=== PATIENT | female | born 1980 | race African-American/Black ===

== ENCOUNTER 2019-02-16 21:45 | Inpatient (IN) | payer MEDICAID ==
[~2019-02-16] VITALS: Ht 165.1 cm; Wt 59.0 kg
[2019-02-16 22:48] LABS: BASOPHILS 0.2 % (0-2); EOSINOPHILS 0.2 % (0-7); HEMATOCRIT 35.3 % (36.0-48.0); HEMOGLOBIN 11.7 g/dL (12-16); IMMATURE GRANULOCYTES 0.2 % (0-5); LYMPHOCYTES 7.3 % (15-50); MCH 23.3 pg (26.0-34.0); MCHC 33.1 g/dL (31.0-37.0); MCV 70.2 fL (80.0-100.0); MEAN PLATELET VOLUME 10.6 fL (7.4-10.4); MONOCYTES 1.3 % (2-11); NEUTROPHILS 90.8 % (40-80); PLATELET COUNT 369 10x3/uL (130-400); RBC 5.03 10x6/uL (4.00-5.40); RDW 16.9 % (11.5-14.5)
[2019-02-16 22:53] LABS: INR 1.08 (0.85-1.17); PROTIME 13.5 SECONDS (11.6-15.0)
[2019-02-16 22:54] LABS: D-DIMER-QUANTITATIVE 0.95 ug/mLFEU (0.20-0.54)
[2019-02-16 23:04] LABS: ALBUMIN 1.6 g/dL (3.4-5.0); ANION GAP 12.3 mmol/L (8-16); BILIRUBIN - TOTAL 0.65 mg/dL (0.2-1.3); CARBON DIOXIDE 27.1 mmol/L (21.0-32.0); CREATININE - SERUM 2.9 mg/dL (0.6-1.3); POTASSIUM - SERUM 3.4 mmol/L (3.5-5.1); PROTEIN - SERUM 7.3 g/dL (6.4-8.2)
[2019-02-16 23:11] LABS: CALCIUM 12.4 mg/dL (8.5-10.1)
--- NOTE | 2019-02-16 23:32 | NUR ---
80 MG LOVENOX PULLED. WASTED 0.2 ML FOR A TOTAL ADMINISTRATION OF 60 MG OR 0.6 ML. CONFIRMED WITH SECOND RN JOHN.
[2019-02-17 00:41] VITALS: BP 123/76; BMI 21.6
[2019-02-17 05:09] VITALS: BP 100/65
[2019-02-17 06:41] LABS: BASOPHILS 0.3 % (0-2); EOSINOPHILS 0 % (0-7); HEMATOCRIT 34.4 % (36.0-48.0); HEMOGLOBIN 11.1 g/dL (12-16); IMMATURE GRANULOCYTES 0.3 % (0-5); LYMPHOCYTES 32.2 % (15-50); MCH 22.9 pg (26.0-34.0); MCHC 32.3 g/dL (31.0-37.0); MCV 71.1 fL (80.0-100.0); MEAN PLATELET VOLUME 11.1 fL (7.4-10.4); MONOCYTES 3.8 % (2-11); NEUTROPHILS 63.4 % (40-80); PLATELET COUNT 351 10x3/uL (130-400); RBC 4.84 10x6/uL (4.00-5.40); RDW 16.9 % (11.5-14.5)
[2019-02-17 06:44] LABS: ANION GAP 13.7 mmol/L (8-16); CARBON DIOXIDE 25.9 mmol/L (21.0-32.0); CREATININE - SERUM 2.9 mg/dL (0.6-1.3); POTASSIUM - SERUM 3.6 mmol/L (3.5-5.1)
[2019-02-17 06:47] LABS: WBC 3.5 10x3/uL (4.8-10.8)
--- NOTE | 2019-02-17 08:00 | NUR ---
CTA WITH CONTRAST CANCELED BECAUSE OF PATIENTS CREATNINE. ALSO PATIENT HAS AN ALLERGY TO SHRIMP. NOTIFIED BUSINESS TEST ANALYST. NEW ORDERS RECIEVED.
[2019-02-17 09:35] VITALS: BP 123/82
--- NOTE | 2019-02-17 12:00 | NUR ---
PATIENT IN BED WITH IV INTACT. NO COMPLAINTS OR SIGNS OF DISTRESS. NO SCDS ON AT THIS TIME. WAITING FOR SCD MACHINE. NO MONITOR AVAILABLE FOR TELE. CALL LIGHT WITHIN REACH.
--- NOTE | 2019-02-17 12:59 | MORECARE ---
CASE MANAGEMENT DISCHARGE SUMMARY PATIENT: CRESENCIO LÓPEZ UNIT: [id number] ADM DATE: 02/16/19 AGE: 38 : [birth year] SEX: F ROOM/BED: D.2209 AUTHOR: SHASTA,DOC PHYSICIAN: REFERRING PHYSICIAN: SUSAN CLEVELAND MD DATE OF SERVICE: 02/17/19 Discharge Plan Patient Name: CRESENCIO LÓPEZ Facility: [facility]:[place] : 1980 Planned Disposition: Home or Self Care Anticipated Discharge Date: Discharge Date: Expected LOS: Initial Reviewer: [email or web address] Initial Review Date: 02/16/2019 Generated: 02/17/19 1:59 pm Comments DCP- Discharge Planning Updated by [email or web address]: Grecia Lara on 02/17/19 11:[address] Patient Name: CRESENCIO LÓPEZ Admission Status: ER Accout number: [id number] Admission Date: 02-16-2019 : 1980 Admission Diagnosis: Attending: MEGHA, Current LOS: 1 Anticipated DC Date: Planned Disposition: Home or Self Care Primary Insurance: UNINSURED DISCOUNT PLAN Discharge Planning Comments: CM met with patient to complete initial dc planning assessment. CM educated patient on the CM role and verbal consent given by patient to complete assessment. Patient lives at home with her children in [place]. At discharge patient plans to return home and feels this is a safe discharge. She stated that an ambulance will be taking her home. I explained to her that they do not do that, so she will need to find another way to get back to [place] when she is discharged. She stated that she will work on that. CM discussed availability of home health, rehab services, and medical equipment. Patient denied known discharge needs at this time. CM will continue to follow and will assist as needed with dc plans/needs. Granite Worker: Grecia Lara DCPIA - Discharge Planning Initial Assessment Updated by [email or web address]: Grecia Lara on 02/17/19 12:52 pm * Is the patient Alert and Oriented? Yes * How many steps to enter\exit or inside your home? * PCP ASHLEY GILBERT [facility] [place] * Preadmission Environment Home with Family * ADLs Independent * Equipment None * List name and contact numbers for known caregivers / representatives who currently or will assist patient after discharge: WILLIAN BRIONES ) * Verbal permission to speak to the caregivers and representatives has been obtained from the patient. N/A * Community resources currently utilized None * Additional services required to return to the preadmission environment? No * Can the patient safely return to the preadmission environment? Yes * Has this patient been hospitalized within the prior 30 days at any hospital? No Patient Name: CRESENCIO LÓPEZ Page [phone] at 1259 All edits/amendments must be made on the electronic document DICTATION DATE: 02/17/191257 HOOKER OPERATOR: SHARI 02/17/191257 RPT#: [id number] DC DATE: STATUS: ADM IN [facility] [address] [place] [address] END OF REPORT
[2019-02-17 13:58] VITALS: BP 107/71
--- NOTE | 2019-02-17 16:54 | NUR ---
PATIENT TO GET VQ SCAN.
--- NOTE | 2019-02-17 17:55 | NUR ---
EXPLAINED TO PATIENT ABOUT UA AND STRICT I&O. VERBALIZED UNDERSTANDING. NO QUESTIONS AT THIS TIME. CALL LIGHT WITHIN REACH.
[2019-02-17 18:01] VITALS: BP 114/75
[2019-02-17 21:11] VITALS: BP 116/66
[2019-02-17 23:48] LABS: APPEARANCE CLEAR (CLEAR); BILIRUBIN NEGATIVE (NEGATIVE); COLOR YELLOW (YELLOW); GLUCOSE NEGATIVE (NEGATIVE); KETONE SMALL mg/dL (NEGATIVE); NITRITE NEGATIVE (NEGATIVE); PROTEIN NEGATIVE (NEGATIVE); SPECIFIC GRAVITY 1.015 (1.005-1.020); UROBILINOGEN NORMAL (NORMAL)
[2019-02-18 01:32] VITALS: BP 124/70
[2019-02-18 05:18] VITALS: BP 120/67
[2019-02-18 07:28] LABS: BASOPHILS 0 % (0-2); EOSINOPHILS 0 % (0-7); HEMATOCRIT 30.3 % (36.0-48.0); HEMOGLOBIN 9.9 g/dL (12-16); IMMATURE GRANULOCYTES 0.4 % (0-5); LYMPHOCYTES 15.8 % (15-50); MCH 23.2 pg (26.0-34.0); MCHC 32.7 g/dL (31.0-37.0); MONOCYTES 6.1 % (2-11); NEUTROPHILS 77.7 % (40-80); PLATELET COUNT 316 10x3/uL (130-400); RBC 4.27 10x6/uL (4.00-5.40)
[2019-02-18 07:29] LABS: WBC 7.7 10x3/uL (4.8-10.8)
[2019-02-18 07:48] LABS: % SATURATION 46 % (15-55); IRON 77 ug/dl (35-150); TOTAL IRON BIND CAPACITY 167 ug/dl (260-445); UNSAT IRON BIND CAPACITY 90 ug/dl (150-375)
[2019-02-18 08:00] LABS: ALBUMIN 1.7 g/dL (3.4-5.0); ANION GAP 11.9 mmol/L (8-16); BILIRUBIN - TOTAL 0.35 mg/dL (0.2-1.3); CALCIUM 10.6 mg/dL (8.5-10.1); CARBON DIOXIDE 23.3 mmol/L (21.0-32.0); CREATININE - SERUM 2.7 mg/dL (0.6-1.3); PHOSPHOROUS 3.3 mg/dL (2.5-4.9); POTASSIUM - SERUM 3.2 mmol/L (3.5-5.1); PROTEIN - SERUM 6.8 g/dL (6.4-8.2)
--- NOTE | 2019-02-18 08:39 | NUR ---
AWAKE AND ALERT. ORIENTED X3. NO C/O AT THIS TIME. BREAKFAST TRAY ORDERED FOR PATIENT. ECHO IN PROGRESS. LUNGS ARE CLEAR BILATERALLY, NO COUGH NOTED. SKIN IS INTACT WITHOUT REDNESS. IV TO RIGHT AC IS PATENT WITHOUT REDNESS AT INSERTION SITE. DENIES NEEDS.
[2019-02-18 08:45] VITALS: BP 124/81
--- NOTE | 2019-02-18 10:41 | NUR ---
GIVEN AM MEDS PER NURSING STUDENTS. ATE ALL OF BREAKFAST. DENIES NEEDS.
[2019-02-18 14:41] VITALS: BP 121/73
--- NOTE | 2019-02-18 18:30 | NUR ---
ATE OVER HALF OF SUPPER. DENIES NEEDS. NO CHANGES NOTED.
[2019-02-18 18:31] VITALS: BP 121/81
[2019-02-19 01:06] VITALS: BP 112/77
[2019-02-19 04:36] VITALS: BP 116/71
[2019-02-19 06:16] LABS: VITAMIN D 25 HYDROXY 7.6 ng/mL (30.0-100.0)
[2019-02-19 06:22] LABS: BASOPHILS 0 % (0-2); EOSINOPHILS 0 % (0-7); HEMATOCRIT 28.4 % (36.0-48.0); IMMATURE GRANULOCYTES 0.5 % (0-5); LYMPHOCYTES 13.4 % (15-50); MCH 22.6 pg (26.0-34.0); MCHC 31.7 g/dL (31.0-37.0); MCV 71.4 fL (80.0-100.0); MEAN PLATELET VOLUME 10.7 fL (7.4-10.4); MONOCYTES 8.7 % (2-11); NEUTROPHILS 77.4 % (40-80); PLATELET COUNT 335 10x3/uL (130-400); RBC 3.98 10x6/uL (4.00-5.40); RDW 17.3 % (11.5-14.5); WBC 7.9 10x3/uL (4.8-10.8)
[2019-02-19 06:45] LABS: ALBUMIN 1.6 g/dL (3.4-5.0); BILIRUBIN - TOTAL 0.28 mg/dL (0.2-1.3); CALCIUM 10.4 mg/dL (8.5-10.1); CARBON DIOXIDE 22.9 mmol/L (21.0-32.0); CREATININE - SERUM 2.1 mg/dL (0.6-1.3); MAGNESIUM - SERUM 1.4 mg/dL (1.8-2.4); PHOSPHOROUS 2.5 mg/dL (2.5-4.9); PROTEIN - SERUM 6.2 g/dL (6.4-8.2)
[2019-02-19 06:50] LABS: POTASSIUM - SERUM 3.9 mmol/L (3.5-5.1)
[2019-02-19 09:15] VITALS: BP 135/83
--- NOTE | 2019-02-19 09:50 | NUR ---
ALERT AND ORIENTED AND IN GOOD SPIRITS. MAGNESIUM 1.4 AND BEGAN ELECTROLYTE PROTOCOL. ENF INFUSING AT PRESRIBED RATE TO RT. A/C INSPIRATORY WHEEZES NOTED TO RUQ AND RLQ ON AUSCULTATION AND CRACLES NOTED TO LLQ AND LUQ ANTERIOR ON AUSCULTATION. NO DISTRESS NOTED. DENIES ANY PAIN OR DISCMFORT WITH BS NOTED. ENCOURAGED TO USE CALL LIGHT FOR ASSSIT.
[2019-02-19 13:11] VITALS: BP 118/78
[2019-02-19 13:15] LABS: ANA REFLEX - DIRECT Negative (Negative)
[2019-02-19 14:12] LABS: ACLA - IGG AB <9 GPL U/mL (0-14); ACLA - IGM AB 14 MPL U/mL (0-12)
[2019-02-19 15:45] VITALS: BP 121/79
--- NOTE | 2019-02-19 19:55 | NUR ---
PT RESTING IN BED. ALERT AND ORIENTED. NO SIGNS OF DISTRESS. BREATHING EVEN AND UNLABORED. PT STATES NO PROBLEMS AT THIS TIME. IV SITE RT AC DRESSING CLEAN DRY AND INTACT. NO SIGNS OF INFECTION. SKIN CLEAN DRY AND INTACT. BOWEL SOUNDS ACTIVE. NO LOWER LEG SWELLING PRESENT. WILL CONTINUE PLAN OF CARE. CALL LIGHT IN REACH. BED LOWERED AND LOCKED. BED RAILS UP X1.
[2019-02-19 20:00] VITALS: BP 118/60
[2019-02-20] VITALS: BP 129/74
--- NOTE | 2019-02-20 02:19 | NUR ---
I have reviewed this patient and I concur with the Shift Assessment completed by the Licensed Practical Nurse today this shift.
[2019-02-20 03:08] LABS: ANGIOTENSIN CONVERTING ENZYME 282 U/L (14-82)
[2019-02-20 04:00] VITALS: BP 117/73
[2019-02-20 04:47] LABS: BASOPHILS 0 % (0-2); EOSINOPHILS 0 % (0-7); HEMATOCRIT 26.7 % (36.0-48.0); HEMOGLOBIN 8.6 g/dL (12-16); IMMATURE GRANULOCYTES 0.7 % (0-5); LYMPHOCYTES 13.8 % (15-50); MCH 22.7 pg (26.0-34.0); MCHC 32.2 g/dL (31.0-37.0); MCV 70.4 fL (80.0-100.0); MEAN PLATELET VOLUME 10.6 fL (7.4-10.4); NEUTROPHILS 79.5 % (40-80); PLATELET COUNT 336 10x3/uL (130-400); RBC 3.79 10x6/uL (4.00-5.40); RDW 17.5 % (11.5-14.5); WBC 8.2 10x3/uL (4.8-10.8)
[2019-02-20 05:09] LABS: ALBUMIN 1.8 g/dL (3.4-5.0); ALKALINE PHOSPHATASE 353 U/L (46-116); BILIRUBIN - TOTAL 0.29 mg/dL (0.2-1.3); CALC OSMOLALITY 284 mosm/kg (275-300); CALCIUM 9.8 mg/dL (8.5-10.1); CHLORIDE - SERUM 111 mmol/L (98-107); CKMB 0.5 U/L (0.0-3.6); CREATININE - SERUM 1.6 mg/dL (0.6-1.3); GLUCOSE 102 mg/dL (74-106); MAGNESIUM - SERUM 1.7 mg/dL (1.8-2.4); PHOSPHOROUS 2.6 mg/dL (2.5-4.9); POTASSIUM - SERUM 3.9 mmol/L (3.5-5.1); PRE-ALBUMIN 16.3 mg/dL (18.0-35.7); PROTEIN - SERUM 6.3 g/dL (6.4-8.2); SODIUM 141 mmol/L (136-145); UREA NITROGEN 23 mg/dL (7-18); eGFR NON AFRICAN AMERICAN 39 mL/min (90-120)
[2019-02-20 05:11] LABS: ALT (SGPT) 38 U/L (10-68); TROPONIN-I < 0.017 ng/mL (0.000-0.060)
[2019-02-20 09:50] VITALS: BP 123/73
--- NOTE | 2019-02-20 09:58 | EC ---
PATIENT:CRESENCIO LÓPEZ DATE OF SERVICE: 02/16/19 SEX: F MEDICAL RECORD: [id number] DATE OF : [birth year] LOCATION:[facility] AGE OF PATIENT: 38 ADMISSION DATE: 02/16/19 REFERRING PHYSICIAN: INTERPRETING PHYSICIAN: ALEK TINOCO MD ECHOCARDIOGRAM REPORT ECHO CHARGES 4 ECHO COMPLETE Date: 02/18/19 CLINICAL DIAGNOSIS: SOB ECHOCARDIOGRAPHIC MEASUREMENTS (adult normal given) AC root (d.<3.7cm) 2.1 cm LV Septum d (<1.2 cm> 0.6 cm Valve Excursion 1.1 cm LV Septum (systole) 1.2 cm Left Atria (s.<4.0cm> 2.9 cm LVPW d(<1.2cm) 0.8 cm RV (d.<2.3cm) 2.1 cm LVPW (sytole) 1.1 cm LV diastole(<5.6CM) 4.2 cm MV E-F(>70mm/sec) cm LV systole 2.5 cm LVOT Diameter 1.6 cm MV exc.(>10mm) cm Est.ejection fraction (50-75%) % DOPPLER: LVIT cm/sec A 76 cm/sec E 83 cm/sec LA cm/sec RVSP 31.4 mmHg LVOT 138 cm/sec AOP1/2T m/s Asc. Ao 155 cm/sec RVOT 64 cm/sec RA cm/sec PA 118 cm/sec AV Gradient Peak 9.6 mmHg AV Mean 4.6 mmHg AV Area 1.8 cm MV Gradient Peak 5.8 mmHg MV Mean 2.9 mmHg MV Area cm COMMENTS: Visitor Services Information Assistant: Pravin GLOVER Die Cast Operator: 3 Dr. Morton TAPE# PACS Pericardial Effusion N DATE OF SERVICE: 02/18/2019 Adequate 2D echo, color flow, spectral Doppler, and M-Mode No LVH. LV internal dimension is normal. Wall motion is normal. EF is greater than or equal to 55%. Aortic valve is tricuspid. No evidence of stenosis by Doppler interrogation. Left atrium is normal. Mitral valve shows no prolapse. Trace MR. Right-sided chambers are grossly normal. Trace TR. TRANSINT:[id number] Voice Confirmation ID: [id number] DOCUMENT ID: [id number] ECHOCARDIOGRAM REPORT [id number] CRESENCIO LÓPEZ ALEK TINOCO MD at 0958 CC: [id number] DICTATION DATE: 02/18/19 1440 CUFF KNITTER: 02/18/19 1522 ADM IN [place] [id number] [place] [id number]
[2019-02-20 12:10] LABS: LUPUS - INTERPRETATION Comment: (()); LUPUS - THROMBIN TIME 24.5 sec (0.0-23.0); LUPUS - dRVVT 27.2 sec (0.0-47.0); PTT-LA 38.4 sec (0.0-51.9)
--- NOTE | 2019-02-20 12:50 | NUR ---
ALERT AND ORIENTED WITH EXP. CRACKLES TO RLQ ANTERIOR CONTINUES 02 2L N/C. IVF INFUSING AT PRESCRIBED RATE. DENIES ANY PAIN OR DISCOMFORT. TELEMETRY INTACT. ENCOURAGED TO USE CALL LIGHT FOR ASSIST.
[2019-02-20 14:16] VITALS: BP 127/84
[2019-02-20 17:19] VITALS: BP 130/75
[2019-02-20 20:32] VITALS: BP 123/84
[2019-02-21 01:01] VITALS: BP 121/75
--- NOTE | 2019-02-21 04:06 | NUR ---
I have reviewed this patient and I concur with the Shift Assessment completed by the Licensed Practical Nurse today this shift.
[2019-02-21 07:33] LABS: BASOPHILS 0.1 % (0-2); EOSINOPHILS 0.1 % (0-7); HEMATOCRIT 29.6 % (36.0-48.0); HEMOGLOBIN 9.6 g/dL (12-16); IMMATURE GRANULOCYTES 0.9 % (0-5); LYMPHOCYTES 18.6 % (15-50); MCH 23.2 pg (26.0-34.0); MCHC 32.4 g/dL (31.0-37.0); MCV 71.5 fL (80.0-100.0); MEAN PLATELET VOLUME 10.6 fL (7.4-10.4); MONOCYTES 4.9 % (2-11); NEUTROPHILS 75.4 % (40-80); PLATELET COUNT 375 10x3/uL (130-400); RBC 4.14 10x6/uL (4.00-5.40); RDW 18.2 % (11.5-14.5); WBC 7.4 10x3/uL (4.8-10.8)
--- NOTE | 2019-02-21 08:00 | NUR ---
ALERT AND ORIENTED WITH O2 AT 3L N/C WTH NON PRODUCTIVE COUGH AT TIMES. IVF INFUSGN AT PRESRIBED RATE. DENEIS ANY PAIN OR DISCOMFORT AT THIS TIME. STATED WOULD LIKE TO SPONGE OFF TODAY. ENCOURAGED TO USE CALL LIGHT FOR ASSSIT.
[2019-02-21 08:06] LABS: ALBUMIN 2.1 g/dL (3.4-5.0); BILIRUBIN - TOTAL 0.29 mg/dL (0.2-1.3); CALCIUM 9.5 mg/dL (8.5-10.1); CREATININE - SERUM 1.6 mg/dL (0.6-1.3); PHOSPHOROUS 2.8 mg/dL (2.5-4.9); POTASSIUM - SERUM 3.9 mmol/L (3.5-5.1); PROTEIN - SERUM 6.9 g/dL (6.4-8.2)
[2019-02-21 08:26] LABS: CARBON DIOXIDE 23.5 mmol/L (21.0-32.0)
[2019-02-21 08:30] LABS: ANION GAP 12.4 mmol/L (8-16)
[2019-02-21 10:12] VITALS: BP 160/93
--- NOTE | 2019-02-21 11:11 | NUR ---
SET UP ASSIST NEEDED ONLY WITH SPONGE BATH WITH LINEN CHANGED. RESTING IN BED WITH CALL LIGHT IN REACH.
[2019-02-21 14:37] VITALS: BP 113/76
[2019-02-21 15:07] LABS: PROTEIN S - FREE 50 % (57-157); PROTEIN S - FUNCTIONAL 42 % (63-140); PROTEIN S - TOTAL 78 % (60-150)
[2019-02-21 18:17] VITALS: BP 114/69
[2019-02-21 20:00] VITALS: BP 123/79
[2019-02-22] VITALS: BP 128/82
--- NOTE | 2019-02-22 03:45 | NUR ---
I have reviewed this patient and I concur with the Shift Assessment completed by the Licensed Practical Nurse today this shift.
[2019-02-22 04:00] VITALS: BP 119/74
[2019-02-22 07:58] LABS: BASOPHILS 0 % (0-2); EOSINOPHILS 0.1 % (0-7); HEMATOCRIT 28.7 % (36.0-48.0); HEMOGLOBIN 9.1 g/dL (12-16); IMMATURE GRANULOCYTES 0.6 % (0-5); LYMPHOCYTES 17.1 % (15-50); MCH 22.7 pg (26.0-34.0); MCHC 31.7 g/dL (31.0-37.0); MCV 71.6 fL (80.0-100.0); MEAN PLATELET VOLUME 10.9 fL (7.4-10.4); MONOCYTES 6.9 % (2-11); NEUTROPHILS 75.3 % (40-80); PLATELET COUNT 378 10x3/uL (130-400); RBC 4.01 10x6/uL (4.00-5.40); RDW 18.4 % (11.5-14.5); WBC 7.8 10x3/uL (4.8-10.8)
[2019-02-22 08:00] VITALS: BP 132/84
[2019-02-22 08:18] LABS: ANION GAP 10.3 mmol/L (8-16); BILIRUBIN - TOTAL 0.25 mg/dL (0.2-1.3); CALCIUM 9.5 mg/dL (8.5-10.1); CARBON DIOXIDE 27.6 mmol/L (21.0-32.0); CREATININE - SERUM 1.3 mg/dL (0.6-1.3); PHOSPHOROUS 2.9 mg/dL (2.5-4.9); POTASSIUM - SERUM 3.9 mmol/L (3.5-5.1); PROTEIN - SERUM 6.4 g/dL (6.4-8.2)
--- NOTE | 2019-02-22 10:04 | NUR ---
PT SITTING UP IN BED STATES SHE FEELS SO MUCH BETTER TODAY THEN WHEN SHE FIRST ARRIVED, PT INQUIRED ON HOW TO GET BACK HOME IF SHE WOULD NEED TO FIND A RIDE OR WILL AMBULANCE BE ABLE TO TAKE HER, ADVISED HER THAT CASE MANAGEMENT WOULD BE ABLE TO ASSIST HER AND ANSWER QUESTIONS
[2019-02-22 14:00] VITALS: BP 135/71
--- NOTE | 2019-02-22 16:17 | NUR ---
I have reviewed this patient and I concur with the Shift Assessment completed by the Licensed Practical Nurse today this shift.
[2019-02-22 18:01] VITALS: BP 110/76
[2019-02-22 20:00] VITALS: BP 126/70
--- NOTE | 2019-02-22 20:00 | NUR ---
VITAL SIGNS STABLE. SPO2 94-95% ON 1.5L. WILL CONTINUE TO MONITOR.
[2019-02-23 03:08] LABS: PROTEIN C - ANTIGEN 129 % (60-150); PROTEIN C - FUNCTIONAL 164 % (73-180)
[2019-02-23 04:00] VITALS: BP 128/78
[2019-02-23 05:37] LABS: BASOPHILS 0 % (0-2); EOSINOPHILS 0 % (0-7); HEMATOCRIT 29.5 % (36.0-48.0); HEMOGLOBIN 9.4 g/dL (12-16); IMMATURE GRANULOCYTES 0.5 % (0-5); LYMPHOCYTES 10.4 % (15-50); MCH 23.3 pg (26.0-34.0); MCHC 31.9 g/dL (31.0-37.0); MEAN PLATELET VOLUME 10.7 fL (7.4-10.4); MONOCYTES 4.6 % (2-11); NEUTROPHILS 84.5 % (40-80); PLATELET COUNT 394 10x3/uL (130-400); RBC 4.04 10x6/uL (4.00-5.40); RDW 18.9 % (11.5-14.5)
[2019-02-23 06:34] LABS: ALBUMIN 2.2 g/dL (3.4-5.0); ANION GAP 9.9 mmol/L (8-16); BILIRUBIN - TOTAL 0.31 mg/dL (0.2-1.3); CALCIUM 9.3 mg/dL (8.5-10.1); CARBON DIOXIDE 27.6 mmol/L (21.0-32.0); CREATININE - SERUM 1.4 mg/dL (0.6-1.3); POTASSIUM - SERUM 3.5 mmol/L (3.5-5.1); PROTEIN - SERUM 6.6 g/dL (6.4-8.2)
[2019-02-23 08:27] VITALS: BP 116/69
--- NOTE | 2019-02-23 09:39 | NUR ---
PT SITTING UP IN BED EATING BREAKFAST, STATES SHE HOPES TO GO HOME TODAY. BED IN LOW POSITION, CL IN REACH CONTINUE WITH PLAN OF CARE
--- NOTE | 2019-02-23 11:07 | NUR ---
PT HAD WALK TEST ORDERED BY DR CASTRO TODAY NIYAH PT WALKED WITH RT, WILL ASK IN REGARDS TO RESULTS OF WALK TEST
--- NOTE | 2019-02-23 11:42 | NUR ---
GAVE INSIDE PHONE SALES PT WALK TEST RESULTS, PT IS UP WALKING AROUND IN ROOM, NO NEEDS VOICED, CONTINUE WITH PLAN OF CARE
[2019-02-23 12:45] VITALS: BP 133/89
[2019-02-23 13:14] VITALS: Ht 165.1 cm; Wt 59.0 kg
--- NOTE | 2019-02-23 13:26 | MORECARE ---
CASE MANAGEMENT DISCHARGE SUMMARY PATIENT: CRESENCIO LÓPEZ UNIT: [id number] ADM DATE: 02/16/19 AGE: 38 : [birth year] SEX: F ROOM/BED: D.2208 AUTHOR: GUERLINE VEGAS PHYSICIAN: REFERRING PHYSICIAN: SUSAN CLEVELAND MD DATE OF SERVICE: 02/23/19 Discharge Plan Patient Name: CRESENCIO LÓPEZ [facility] [facility] 1980 Planned Disposition: Home or Self Care Anticipated Discharge Date: Discharge Date: Expected LOS: Initial Reviewer: [email or web address] Initial Review Date: 02/16/2019 Generated: 02/23/19 2:26 pm Comments DCP- Discharge Planning Updated by [email or web address]: Grecia Lara on 02/23/19 12:[address] Patient will qualify for home O2, all clinical information sent to [facility] after SHELBY was obtained and signed. I spoke with [facility] DCP- Discharge Planning Updated by [email or web address]: Grecia Lara on 02/17/19 11:[address] Patient Name: CRESENCIO LÓPEZ Admission Status: ER Accout number: [id number] Admission Date: 02-16-2019 : 1980 Admission Diagnosis: Attending: MEGHA, Current LOS: 1 Anticipated DC Date: Planned Disposition: Home or Self Care Primary Insurance: UNINSURED DISCOUNT PLAN Discharge Planning Comments: CM met with patient to complete initial dc planning assessment. CM educated patient on the CM role and verbal consent given by patient to complete assessment. Patient lives at home with her children in [place]. At discharge patient plans to return home and feels this is a safe discharge. She stated that an ambulance will be taking her home. I explained to her that they do not do that, so she will need to find another way to get back to [place] when she is discharged. She stated that she will work on that. CM discussed availability of home health, rehab services, and medical equipment. Patient denied known discharge needs at this time. CM will continue to follow and will assist as needed with dc plans/needs. Truck Unloader: Grecia Lara DCPIA - Discharge Planning Initial Assessment Updated by [email or web address]: Grecia Lara on 02/17/19 12:52 pm * Is the patient Alert and Oriented? Yes * How many steps to enter\exit or inside your home? * PCP ASHLEY GILBERT * Pharmacy [facility] IN [place] * Preadmission Environment Home with Family * ADLs Independent * Equipment None * List name and contact numbers for known caregivers / representatives who currently or will assist patient after discharge: WILLIAN BRIONES ) * Verbal permission to speak to the caregivers and representatives has been obtained from the patient. N/A * Community resources currently utilized None * Additional services required to return to the preadmission environment? No * Can the patient safely return to the preadmission environment? Yes * Has this patient been hospitalized within the prior 30 days at any hospital? No External Providers External Provider: Diana Hernández Contact Date: Service Request Date: Service Type: Resolution: Reviewer: Comments: Coverage Notice Reviewer: [email or web address] Faizan Lara Notice Issued Date-Time: 02/23/2019 13:00 Notice Type: Patient Choice Letter Notice Delivered To: Patient Relationship to Patient: [facility] [employer] [facility] Name: Delivery Method: HAND - Hand Delivered Cris Days: Prior Verbal Notification: Recipient Understood Notice: Yes Recipient Signature: Yes Med Rec Note Co-signed by Attending: Coverage Notice Comment: gee Rich DP export: 02/17/19 11:59 am Patient Name: CRESENCIO LÓPEZ Page 39866 at 1326 All edits/amendments must be made on the electronic document DICTATION DATE: 02/23/19 1325 CHILDREN'S MINISTRY DIRECTOR: SHARI 02/23/19 1325 RPT#: [id number] DC DATE: STATUS: ADM IN [facility] [address] [place] [address] END OF REPORT
--- NOTE | 2019-02-23 14:26 | NUR ---
I have reviewed this patient and I concur with the Shift Assessment completed by the Licensed Practical Nurse today this shift.
[2019-02-23 16:45] VITALS: BP 134/77
[2019-02-23 20:00] VITALS: BP 130/76
--- NOTE | 2019-02-23 22:00 | NUR ---
SUPINE IN BED, SPO2 95% ON 1.5L. DENIES PAIN, STATES SHE IS EXCITED TO GO HOME TOMORROW. STATES SHE DOESN'T WANT TO, "GET TOO SKINNY AGAIN LIKE BEFORE," AND ASKED QHERE SHE COULD GET ENSURE WHEN SHE GOT DISCHARGED. TOLD PT [facility], D[facility]EL WOULD BE LIKELY TO HAVE THEM.
[2019-02-24 04:00] VITALS: BP 123/69
--- NOTE | 2019-02-24 04:22 | NUR ---
I have reviewed this patient and I concur with the Shift Assessment completed by the Licensed Practical Nurse today this shift.
[2019-02-24 05:28] LABS: BASOPHILS 0 % (0-2); EOSINOPHILS 0.8 % (0-7); HEMATOCRIT 28.8 % (36.0-48.0); HEMOGLOBIN 9.1 g/dL (12-16); IMMATURE GRANULOCYTES 0.7 % (0-5); LYMPHOCYTES 21.6 % (15-50); MCH 23.1 pg (26.0-34.0); MCHC 31.6 g/dL (31.0-37.0); MCV 73.1 fL (80.0-100.0); MEAN PLATELET VOLUME 10.2 fL (7.4-10.4); MONOCYTES 11.7 % (2-11); NEUTROPHILS 65.2 % (40-80); PLATELET COUNT 438 10x3/uL (130-400); RBC 3.94 10x6/uL (4.00-5.40); RDW 19.1 % (11.5-14.5); WBC 8.7 10x3/uL (4.8-10.8)
[2019-02-24 06:14] LABS: ALBUMIN 2.1 g/dL (3.4-5.0); ANION GAP 9.4 mmol/L (8-16); BILIRUBIN - TOTAL 0.26 mg/dL (0.2-1.3); CALCIUM 8.7 mg/dL (8.5-10.1); CARBON DIOXIDE 28.4 mmol/L (21.0-32.0); CREATININE - SERUM 1.1 mg/dL (0.6-1.3); PROTEIN - SERUM 6.1 g/dL (6.4-8.2)
[2019-02-24 06:58] LABS: POTASSIUM - SERUM 2.8 mmol/L (3.5-5.1)
[2019-02-24 09:41] VITALS: BP 114/66
--- NOTE | 2019-02-24 10:11 | MORECARE ---
CASE MANAGEMENT DISCHARGE SUMMARY PATIENT: CRESENCIO LÓPEZ UNIT: [id number] ADM DATE: 02/16/19 AGE: 38 : 84 SEX: F ROOM/BED: D.2209 AUTHOR: GUERLINE VEGAS PHYSICIAN: REFERRING PHYSICIAN: SUSAN CLEVELAND MD DATE OF SERVICE: 02/24/19 Discharge Plan Patient Name: CRESENCIO LÓPEZ [facility] [facility] 1980 Planned Disposition: Home or Self Care Anticipated Discharge Date: Discharge Date: Expected LOS: Initial Reviewer: [email or web address] Initial Review Date: 02/16/2019 Generated: 02/24/19 11:11 am Comments DCP- Discharge Planning Updated by [email or web address]: Grecia Lara on 02/24/19 9:[address] Patient will be discharging today, [facility] has delivered the portable o2 to the hospital and will deliver her Home O2 and Nebulizer to her home. CM will continue to follow and assist with DC planning as needed DCP- Discharge Planning Updated by [email or web address]: Grceia Lara on 02/23/19 12:[address] Patient will qualify for home O2, all clinical information sent to [facility] after SHELBY was obtained and signed. I spoke with [facility] DCP- Discharge Planning Updated by [id number]: Grecia Lara on 02/17/19 11:[address] Patient Name: CRESENCIO LÓPEZ Admission Status: ER Accout number: [id number] Admission Date: 02-16-2019 : 1980 Admission Diagnosis: Attending: MEGHA, Current LOS: 1 Anticipated DC Date: Planned Disposition: Home or Self Care Primary Insurance: UNINSURED DISCOUNT PLAN Discharge Planning Comments: CM met with patient to complete initial dc planning assessment. CM educated patient on the CM role and verbal consent given by patient to complete assessment. Patient lives at home with her children in [place]. At discharge patient plans to return home and feels this is a safe discharge. She stated that an ambulance will be taking her home. I explained to her that they do not do that, so she will need to find another way to get back to [place] when she is discharged. She stated that she will work on that. CM discussed availability of home health, rehab services, and medical equipment. Patient denied known discharge needs at this time. CM will continue to follow and will assist as needed with dc plans/needs. Orthopedic Assistant: Grecia Lara DCPIA - Discharge Planning Initial Assessment Updated by [email or web address]: Grecia Lara on 02/17/19 12:52 pm * Is the patient Alert and Oriented? Yes * How many steps to enter\exit or inside your home? * PCP ASHLEY GILBERT * Pharmacy [facility] IN [place] * Preadmission Environment Home with Family * ADLs Independent * Equipment None * List name and contact numbers for known caregivers / representatives who currently or will assist patient after discharge: WILLIAN BRIONES ) * Verbal permission to speak to the caregivers and representatives has been obtained from the patient. N/A * Community resources currently utilized None * Additional services required to return to the preadmission environment? No * Can the patient safely return to the preadmission environment? Yes * Has this patient been hospitalized within the prior 30 days at any hospital? No Coverage Notice Reviewer: [email or web address] - Grecia Lara Notice Issued Date-Time: 02/23/2019 13:00 Notice Type: Patient Choice Letter Notice Delivered To: Patient Relationship to Patient: Rehab Director Name: Delivery Method: HAND - Hand Delivered Cris Days: Prior Verbal Notification: Recipient Understood Notice: Yes Recipient Signature: Yes Med Rec Note Co-signed by Attending: Coverage Notice Comment: gee Rich DP export: 02/23/19 12:26 pm Patient Name: CRESENCIO LÓPEZ Page 24909 at 1011 All edits/amendments must be made on the electronic document DICTATION DATE: 02/24/19 1011 DISPATCHER REFINERY: SHARI 02/24/19 1011 RPT#: [id number] DC DATE: STATUS: ADM IN [facility] [address] [place] [address] END OF REPORT
[2019-02-24 15:09] VITALS: BP 103/65
[2019-02-24 15:14] LABS: FACTOR II DNA ANALYSIS Negative (())
[2019-02-24] MEDS ORDERED: OMNICEF300 MG PO (15:26)
[2019-02-24] MEDS ORDERED: BACTRIM DS PO (15:27)
[2019-02-24] MEDS ORDERED: ELIQUIS5 MG PO ×2 (15:29→15:30)
[2019-02-24] MEDS ORDERED: TESSALON PERLE100 MG PO (15:30)
[2019-02-24] MEDS ORDERED: PULMICORT0.5 MG/21 UPD (15:31)
[2019-02-24] MEDS ORDERED: PREDNISONE10 MG PO (15:32)
[2019-02-24] MEDS ORDERED: FLUTICASONE PRO16 GM NASAL (15:40)
[2019-02-24] MEDS ORDERED: SINGULAIR10 MG PO (15:40)
[2019-02-24 16:00] VITALS: BP 114/75
--- NOTE | 2019-02-24 18:44 | NUR ---
I have reviewed this patient and I concur with the Shift Assessment completed by the Licensed Practical Nurse today this shift.
== END 2019-02-24 19:41 | disposition home or self-care (01) | DRG 175 ==
LOC: D.ER 21:45 → D.MS 22:33
PROVIDERS: Family Medicine; Internal Medicine Nephrology; Internal Medicine Pulmonary Disease; ADMIT Family Medicine; ATTEND Family Medicine
DX: I26.99 Other pulmonary embolism without acute cor pulmonale (principal); J96.91 Respiratory failure, unspecified with hypoxia; N17.9 Acute kidney failure, unspecified; J44.1 Chronic obstructive pulmonary disease with (acute) exacerbation; D86.9 Sarcoidosis, unspecified; K21.9 Gastro-esophageal reflux disease without esophagitis; E87.6 Hypokalemia; E88.09 Other disorders of plasma-protein metabolism, not elsewhere classified